=== PATIENT | male | born 1990 | race Caucasian/White ===

== ENCOUNTER 2016-03-09 19:56 | Emergency (ER) | payer SELFPAY ==
[~2016-03-09 19:56] MED LIST: ALBU8.5H3; BACTDS PO; CEPH-443 PO; HYDR-906 PO; IBUP-1542 PO
== END 2016-03-09 22:00 | disposition left against medical advice (07) ==
LOC: E/R 19:56
DX: Z53.21 Procedure and treatment not carried out due to patient leaving prior to being seen by health care provider (principal)

== ENCOUNTER 2016-07-10 20:35 | Inpatient (IN) | payer SELFPAY ==
[~2016-07-10] VITALS: Ht 180.3 cm; Wt 92.0 kg
[2016-07-10 21:29] VITALS: Ht 180.3 cm; Wt 92.0 kg
[2016-07-11] VITALS (25 sets, daily range): BP systolic 104–130; BP diastolic 50–98; PULSE 104–125; RESP 16–23; TEMP 100
[2016-07-11] MEDS ORDERED: SODIUM CHLORIDE 0.9% 1L BAG IV* STA (00:03)
[2016-07-11] MEDS ORDERED: ONDANSETRON 4 MG INJ IV STA (00:03)
[2016-07-11] MEDS ORDERED: morphine 4 MG/ML VIAL IV STA (00:03)
[2016-07-11 00:40] LABS: ADD SCAN DIFF NO
--- NOTE | 2016-07-11 00:42 | RADRPT ---
PROCEDURE: CT Abdomen and Pelvis without contrast. CLINICAL INDICATION: Pain. TECHNIQUE: CT scan of the abdomen and pelvis was performed on a multidetector slice CT scanner. No intravenous contrast material was utilized. Sagittal and coronal reformatted images were obtained fr om the axial source images. Images were reviewed on a high-resolution PACS workstation. Exam CTDlvol = mGy and DLP = Gy-cm. One of the following 3 dose reduction techniques were used: Automated expo sure control; adjustment of the mA and/or kV according to patient size; or use of iterative reconstr uction technique. COMPARISON: None. FINDINGS: There is no obstruction or ileus. Appendix is enlarged and 12 mm diameter. There is a 7.7 mm append icolith at the proximal appendix. There is surrounding fluid and infiltration with sub centimeter l ymph nodes, compatible with acute appendicitis. There is a small amount of extraluminal gas consist ent with perforation. Minimal free fluid extending to the pelvis. The liver is overall normal in size. No intrahepatic lesions are identified. The gallbladder is norm al in appearance. There is no definite biliary ductal dilation. Pancreas is normal in appearance. Th e spleen is unremarkable.. There are no adrenal masses. The aorta is normal caliber. Kidneys are normal in appearance without hydronephrosis, mass or calculus. There is no perinephric c ollection. Ureters are of normal caliber and without evidence for an obstructing calculus. The urin shu bladder is normal in appearance.. Limited evaluation of the lung bases is unremarkable. The bones are unremarkable. IMPRESSION: Enlarged indistinct appendix with surrounding infiltration fluid consistent with acute appendicitis. Appendicolith at the proximal aspect of the appendix. Small amount of extraluminal gas compatible perforation. Findings reported to Dr. RILEY on 07/11/2016 12:39:09 AM. RPTAT: HMVK .Walter West MD, Date Time Electronically viewed and signed by .Walter West MD, MD on 07/11/2016 00:42 .K/
--- NOTE | 2016-07-11 00:49 | RADRPT ---
PROCEDURE: XR Chest. CLINICAL INDICATION: Sepsis. TECHNIQUE: Single frontal chest x-ray. COMPARISON: None. FINDINGS: The cardiomediastinal silhouette is unremarkable. There is no congestive heart failure.. No focal i nfiltrate is seen. There is no pleural effusion. There is no pneumothorax. The osseous structures are unremarkable. IMPRESSION: 1. No active disease. RPTAT: HMVK .Walter West MD, Date Time Electronically viewed and signed by .Walter West MD, MD on 07/11/2016 00:48 .K/
[2016-07-11] MEDS ORDERED: LANS15CA PO (00:56)
[2016-07-11 00:58] LABS: INR 0.96; PROTIME 12.8 Sec (12.2-14.2)
[2016-07-11 00:59] LABS: PARTIAL THROMBOPLASTIN TIME 28.8 Sec (25.0-35.0)
[2016-07-11] MEDS ORDERED: VANCOMYCIN 1 GM (PMX) 250 ML IVPB ONE (01:00)
[2016-07-11] MEDS ORDERED: PIPER-TAZO 3.375 GM IV (PMX) 100 ML IVPB ONE (01:00)
[2016-07-11 01:01] LABS: ALANINE AMINOTRANSFERASE 48 IU/L (13-69); ALBUMIN 5.2 g/dl (3.3-4.9); ALBUMIN/GLOBULIN RATIO 1.48; ALKALINE PHOSPHATASE 90 IU/L (42-121); ANION GAP 18 (8-16); ASPARTATE AMINO TRANSFERASE 24 IU/L (15-46); BLOOD UREA NITROGEN 8 mg/dl (7-20); CALCIUM 9.7 mg/dl (8.4-10.2); CARBON DIOXIDE 23 mmol/L (21-31); CHLORIDE 99 mmol/L (97-110); CREATININE 0.89 mg/dl (0.61-1.24); GLUCOSE 130 mg/dl (70-220); POTASSIUM 3.6 mmol/L (3.5-5.1); SODIUM 136 mmol/L (135-144); TOTAL PROTEIN 8.7 g/dl (6.1-8.1)
[2016-07-11] MEDS ORDERED: SOD CHLORIDE 0.9% 1,000 ML IV SCH ×2 (01:10→01:58)
[2016-07-11 01:12] LABS: ADD UMIC YES; URINE BILIRUBIN (Dip) NEGATIVE (NEGATIVE); URINE BLOOD (Dip) 1+ (NEGATIVE); URINE COLOR LT. YELLOW (YELLOW); URINE GLUCOSE (Dip) NEGATIVE (NEGATIVE); URINE KETONES (Dip) NEGATIVE (NEGATIVE); URINE LEUKOCYTE ESTERASE (Dip) NEGATIVE (NEGATIVE); URINE NITRITE (Dip) NEGATIVE (NEGATIVE); URINE TOTAL PROTEIN (Dip) NEGATIVE (NEGATIVE); URINE UROBILINOGEN (Dip) 0.2 E.U./dL (0.1-1.0)
[2016-07-11 01:13] LABS: TROPONIN-I < 0.012 ng/ml (0.00-0.12)
[2016-07-11 01:14] LABS: BASOPHILS % 0.1 % (0.0-2.0); EOSINOPHILS % 0.1 % (0.0-7.0); HEMATOCRIT 38.5 % (42.0-52.0); HEMOGLOBIN 12.9 g/dl (14.0-18.0); LYMPHOCYTES # 1.5 10^3/ul (0.8-2.9); LYMPHOCYTES % 7.5 % (15.0-51.0); MEAN CORPUSCULAR HEMOGLOBIN 26.5 pg (29.0-33.0); MEAN CORPUSCULAR HGB CONC 33.5 g/dl (32.0-37.0); MEAN CORPUSCULAR VOLUME 79.2 fl (82.0-101.0); MEAN PLATELET VOLUME 9.5 fl (7.4-10.4); MONOCYTE # 1.4 10^3/ul (0.3-0.9); MONOCYTES % 7.5 % (0.0-11.0); NEUTROPHIL # 16.1 10^3/ul (1.6-7.5); NEUTROPHILS % 83.8 % (39.0-77.0); PLATELET COUNT 281 10^3/UL (140-415); RED BLOOD COUNT 4.86 10^6/ul (4.70-6.10); RED CELL DISTRIBUTION WIDTH 13.8 % (11.5-14.5); WHITE BLOOD COUNT 19.3 10^3/ul (4.8-10.8)
--- NOTE | 2016-07-11 01:25 | ERA ---
ER Documentation Chief Complaint Date/Time DATE: 07/11/16 TIME: 01:21 Chief Complaint ABDOMINAL PAIN HX OF ULCERS, FEVER, BODY ACHES, CHILLS, NAUSEA HPI This 25-year-old male presents to the emergency room for evaluation of abdominal pain and fever and body aches. The patient states that his pain is been present for 2 days duration however it is gotten worse over the past day. The patient localizes pain to the lower portion of the abdomen describes as a sharp pain with no radiation associated with mild nausea no vomiting or diarrhea. This patient was brought to the emergency room for further evaluation. He does state he has a previous history of ulcers however this does not feel similar to his ulcers ROS All systems reviewed and are negative except as per history of present illness. Medications Home Meds Reported Medications Lansoprazole* (Prevacid* 24HR) 15 Mg Capsule.dr, 15 MG PO DAILY, CAP 07/11/16 Discontinued Reported Medications Albuterol Sulfate* (Proair HFA*) 8.5 Gm Hfa.aer.ad 03/16/11 Discontinued Scripts Hydrocodone/Acetaminophen ([place] 5-325 Tablet) 1 Each Tablet, 1 TAB PO Q6H Y for PAIN, #20 TAB Prov:CARRILLO RESTRE[employer]. ASSOCIATE PRINCIPAL 11/28/15 Ibuprofen* (Motrin*) 600 Mg Tab, 600 MG PO Q6H Y for PAIN AND OR ELEVATED TEMP, #30 TAB Prov:CARRILLO RESTREPO. ASSOCIATE PRINCIPAL 11/28/15 Cephalexin* (Keflex*) 500 Mg Capsule, 500 MG PO QID for 10 Days, CAP Prov:CARRILLO RESTREPO. ASSOCIATE PRINCIPAL 11/28/15 Sulfamethoxazole-Trimethoprim* (Bactrim* DS) 800-160 Mg Tab, 1 TAB PO BID for 10 Days, TAB Prov:CARRILLO RESTREPO. ASSOCIATE PRINCIPAL 11/28/15 Allergies Allergies: Coded Allergies: No Known Allergy (Unverified , 03/16/11) PMhx/Soc History of Surgery: No Hx Alcohol Use: No Hx Substance Use: No Hx Tobacco Use: No Physical Exam Vitals Vital Signs Date Time Temp Pulse Resp B/P Pulse Ox O2 Delivery O2 Flow Rate FiO2 07/10/16 21:29 102.8 129 20 124/68 100 Physical Exam INITIAL VITAL SIGNS: Reviewed by me GENERAL: The patient is well developed and appropriate for usual state of health in no apparent distress HEENT: Pupils equal, round, and reactive to light. EOMI. There is no scleral icterus. NECK: C-spine is soft and supple, there is no meningismus. There is no cervical lymphadenopathy. LUNGS: Clear to auscultation bilaterally. There are no rales, wheezes or rhonchi. HEART: Tachycardic, no murmurs, clicks, rubs or gallops. ABDOMEN: Positive McBurney point tenderness with mild guarding in the right lower quadrant, positive Rovsing sign EXTREMITIES: There is no peripheral cyanosis or edema. No focal swelling or erythema. NEUROLOGICAL: The patient moves all four extremities with 5/5 strength. Cranial nerves II - XII are intact. Normal gait. Alert and oriented SKIN: There is no apparent rash or petechiae. HEME/LYMPHATIC: There is no evidence of excessive bruising or lymphedema. PSYCHIATRIC: The patient does not appear anxious or depressed. Result Diagram: 07/11/16 0055 07/11/16 0025 Results 24 hrs Laboratory Tests Test 07/11/16 00:25 07/11/16 00:55 Prothrombin Time 12.8Sec Prothrombin Time Ratio 1.0 INR International Normalized Ratio 0.96 Activated Partial Thromboplast Time 28.8Sec Sodium Level 136mmol/L Potassium Level 3.6mmol/L Chloride Level 99mmol/L Carbon Dioxide Level 23mmol/L Anion Gap 18 Blood Urea Nitrogen 8mg/dl Creatinine 0.89mg/dl Glucose Level 130mg/dl Calcium Level 9.7mg/dl Total Bilirubin 1.0mg/dl Direct Bilirubin 0.00mg/dl Indirect Bilirubin 1.0mg/dl Aspartate Amino Transf (AST/SGOT) 24IU/L Alanine Aminotransferase (ALT/SGPT) 48IU/L Alkaline Phosphatase 90IU/L Troponin I < 0.012ng/ml Total Protein 8.7g/dl Albumin 5.2g/dl Globulin 3.50g/dl Albumin/Globulin Ratio 1.48 White Blood Count 19.310^3/ul Red Blood Count 4.8610^6/ul Hemoglobin 12.9g/dl Hematocrit 38.5% Mean Corpuscular Volume 79.2fl Mean Corpuscular Hemoglobin 26.5pg Mean Corpuscular Hemoglobin Concent 33.5g/dl Red Cell Distribution Width 13.8% Platelet Count 34142^3/UL Mean Platelet Volume 9.5fl Neutrophils % 83.8% Lymphocytes % 7.5% Monocytes % 7.5% Eosinophils % 0.1% Basophils % 0.1% Nucleated Red Blood Cells % 0.0/100WBC Neutrophils # 16.110^3/ul Lymphocytes # 1.510^3/ul Monocytes # 1.410^3/ul Eosinophils # 0.010^3/ul Basophils # 0.010^3/ul Nucleated Red Blood Cells # 0.010^3/ul Urine Color LT. YELLOW Urine Clarity CLEAR Urine pH 7.5 Urine Specific [place] 1.010 Urine Ketones NEGATIVE Urine Nitrite NEGATIVE Urine Bilirubin NEGATIVE Urine Urobilinogen 0.2 E.U./dL Urine Leukocyte Esterase NEGATIVE Urine Microscopic RBC Pending Urine Microscopic WBC Pending Urine Hemoglobin 1+ Urine Glucose NEGATIVE% Urine Total Protein NEGATIVE Current Medications Medications (Trade) Dose Ordered Sig/Theo Route PRN Reason Start Time Stop Time Status Last Admin Dose Admin Sodium Chloride (NS) 2,850 ml BOLUS OVER 2 HOURS STAT IV* 07/11/16 00:03 07/11/16 00:06 DC 07/11/16 00:46 Ondansetron HCl (Zofran Inj) 4 mg ONCE STAT IV 07/11/16 00:03 07/11/16 00:06 DC 07/11/16 00:45 Morphine Sulfate 4 mg 4 mg ONCE STAT IV 07/11/16 00:03 07/11/16 00:06 DC 07/11/16 00:45 Piperacillin Sod/ Tazobactam Sod 100 ml @ 200 mls/hr ONCE ONCE IVPB 07/11/16 01:00 07/11/16 01:29 07/11/16 01:10 Vancomycin HCl 250 ml @ 125 mls/hr ONCE ONCE IVPB 07/11/16 01:00 07/11/16 02:59 Sodium Chloride (NS) 1,000 ml @ 80 mls/hr [id number] IV 07/11/16 01:10 07/11/16 13:39 Ondansetron HCl (Zofran Inj) 4 mg BRIDGE ORDER PRN IV NAUSEA AND/OR VOMITING 07/11/16 01:30 07/12/16 01:29 Acetaminophen (Tylenol Tab) 650 mg ER BRIDGE PRN PO MILD PAIN/FEVER 07/11/16 01:30 07/12/16 01:29 Procedures/MDM CT abdomen pelvis without IV contrast: Enlarged indistinct appendix with surrounding infiltration fluid consistent with acute appendicitis. Appendicolith at the proximal aspect of the appendix. Small amount of extraluminal gas compatible perforation. Chest X-ray 1V Interpreted by me: Soft Tissue: No acute abnormalities Bones: No acute abnormalities Mediastinum/Cardiac Silhouette/Lungs: [No acute abnormalities] EKG: Rate/Rhythm: Sinus tachycardia QRS, ST, T-waves: [No changes consistent w/ acute ischemia] Impression: [No evidence of ischemia or arrhythmia] This 25-year-old male presents to the emergency room for evaluation of abdominal pain. When I evaluated this patient he is febrile tachycardic and did have tenderness to palpation with minor guarding in the right lower quadrant. This patient did have septic workup and I did obtain a CT of the abdomen and pelvis which confirm my suspicion of appendicitis. This patient also has a microperforation of his appendicitis. He has a leukocytosis. He was given 30 cc/kg of IV normal saline. He was started on vancomycin and Zosyn after blood cultures were obtained. I have spoken with our general surgeon installation superintendent, Dr. Medrano who agrees to evaluate this patient. This patient is hemodynamically stable at this time with no need for vasopressors and will be placed on the [facility] floor under the care of Dr. ceron Critical Care: Excluding all billable procedures Time: 36 minutes Treatments/Evaluations: Close monitoring and treatment of unstable vital signs, cardiorespiratory, and neurologic status, while maintaining tight balance of fluid, respiratory, and cardiac interventions. Departure Diagnosis: Primary Impression: Sepsis Additional Impression: Perforated appendicitis Condition: BRENNA Rivera DO Jul 11, 2016 01:25
[2016-07-11] MEDS ORDERED: ACETAMINOPHEN 325 MG TAB PO PRN (01:30)
[2016-07-11] MEDS ORDERED: ONDANSETRON 4 MG INJ IV PRN ×4 (01:30→07:30)
[2016-07-11 01:35] LABS: SQUAMOUS EPITHELIAL CELL,UR OCCASIONAL
[2016-07-11] MEDS ORDERED: KETOROLAC 30 MG INJ IV ONE (01:59)
[2016-07-11] MEDS ORDERED: NACL 0.9% 3 ML SYG IV SCH (02:00)
--- NOTE | 2016-07-11 02:09 | HP ---
Date/Time of Note Date/Time of Note DATE: 07/11/16 TIME: 01:58 Assessment/Plan VTE Prophylaxis VTE Prophylaxis Intervention: SCD's Assessment/Plan Chief Complaint/Hosp Course This is a 25-year-old male being admitted to the telemetry floor for: #1 sepsis: White blood cell count of 19 with a heart rate of 130 and a temperature of 102.8 abdominal source of infection of appendicitis. Patient started right now and IV fluids, Zosyn IV. General surgery was contacted patient will going to the OR this a.m. Keep patient n.p.o. #2 acute appendicitis: Physical exam and CT findings are consistent with acute appendicitis. There also appears to be a small amount of luminal gas is consistent with perforation. Patient will be given IV pain meds for pain control and antibiotics as per #1. IV fluid hydration. General surgery was contacted by the ER physician patient will be going to the OR today. Keep patient n.p.o. #3 DVT and GI prophylaxis: SCDs, Protonix Problems: HPI/ROS Admit Date/Time Admit Date/Time 07/11/16 Hx of Present Illness Chief complaint: Abdominal pain This 25-year-old male presents to the emergency room for evaluation of abdominal pain and fever and body aches. The patient states that his pain is been present for 2 days duration however it is gotten worse over the past day. The patient localizes pain to the lower portion of the abdomen describes as a sharp pain with no radiation associated with mild nausea no vomiting or diarrhea. This patient was brought to the emergency room for further evaluation. He does state he has a previous history of ulcers however this does not feel similar to his ulcers Allergies: NKDA Medications: Prevacid ROS Const: As per HPI Eyes : No pain discharge or redness or change in visual acuity ENT: No pain, sore throat, congestion, congestion, dysphagia or discharge Respiratory: No shortness of breath, cough, sputum, wheezing, or pleuritic pain Cardiovascular: No chest pain, palpitation, PND, or edema GI : As per HPI Genitourinary: No dysuria, hematuria, flank pain , discharge or CVA tenderness Musculoskeletal: No joint pain, back pain, neck pain, restricted range of motion in neck or joints Skin: No rash, bruising or hives Neuro: No headache, dizziness, syncope, seizure, focal weakness Endocrine: No polyuria, polydipsia, temperature intolerance Psych: No hallucination, depression, anxiety or suicidal ideation PMH/Family/Social Past Medical History Reflux Past Surgical History Past Surgical Hx: no surgical history Family History Significant Family History: no pertinent family hx Social History Alcohol Use: none Smoking Status: Never smoker Drug Use: none Exam/Review of Systems Vital Signs Vitals Vital Signs Date Time Temp Pulse Resp B/P Pulse Ox O2 Delivery O2 Flow Rate FiO2 07/10/16 21:29 102.8 129 20 124/68 100 Exam Exam General: Patient is well-developed well-nourished and in some mild distress. HEENT: Atraumatic, normocephalic. The pupils are equal, round and reactive. Extraocular motor are intact Neck: Supple with full range of motion. No rigidity or meningismus Chest: Nontender Lungs: Clear to auscultation bilaterally no crackles rales or wheezing Heart: Normal S1-S2, Regular rhythm and rate. No murmur, S3, or S4 Abdomen: Soft, tender to palpation at the right lower quadrant, positive rebound tenderness palpated on the left side of the abdomen Extremities: Normal to inspection, no edema no cyanosis Neurologic: Normal mental status, speech normal, cranial nerves II through XII are intact, motor and sensory are intact, no focal weakness Additional Comments CT abdomen pelvis without IV contrast: Enlarged indistinct appendix with surrounding infiltration fluid consistent with acute appendicitis. Appendicolith at the proximal aspect of the appendix. Small amount of extraluminal gas compatible perforation. PROCEDURE: XR Chest. CLINICAL INDICATION: Sepsis. TECHNIQUE: Single frontal chest x-ray. COMPARISON: None. FINDINGS: The cardiomediastinal silhouette is unremarkable. There is no congestive heart failure.. No focal infiltrate is seen. There is no pleural effusion. There is no pneumothorax. The osseous structures are unremarkable. IMPRESSION: 1. No active disease. EKG: Rate/Rhythm: Sinus tachycardia QRS, ST, T-waves: [No changes consistent w/ acute ischemia] As per ED physician documentation Labs Result Diagram: 07/11/16 0055 07/11/16 0025 Medications Medications Current Medications Vancomycin HCl 250 ml @ 125 mls/hr ONCE ONCE IVPB ; Start 07/11/16 at 01:00; Stop 07/11/16 at 02:59 Sodium Chloride (NS) 1,000 ml @ 80 mls/hr [id number] IV ; Start 07/11/16 at 01:10; Stop 07/11/16 at 13:39 Morphine Sulfate (morphine) 4 mg Q3H PRN IV PAIN; Start 07/11/16 at 02:00; Status ESTELLE MENDEZ Jul 11, 2016 02:08
[2016-07-11] MEDS ORDERED: BUPIVACAINE 0.25%/EPI (SDV) 30 ML INJ ONE (05:50)
[2016-07-11] MEDS ORDERED: LIDOCAINE 1% (STERILE-PAK) 30 ML INJ ONE (06:30)
[2016-07-11] MEDS ORDERED: LIDOCAINE 1% (MPF) 30 ML INJ INJ ONE (06:46)
--- NOTE | 2016-07-11 06:51 | CONS ---
DATE OF ADMISSION: 07/10/2016 DATE OF CONSULTATION: 07/11/2016 HISTORY OF PRESENT ILLNESS: Mr. Tran is a 25-year-old male who presented to the ER with acute ab dominal pain beginning last night. He said his pain was generalized and over the course of the day it localized to his right lower quadrant. He felt chills and possibly had a temperature. He also h ad nausea, but no emesis. He was concerned that he had a prior history of ulcers and thought that concepcion saleem possibly had an ulcer in the past. He presented to the ER and his workup was consistent with an a cute appendicitis. He did have a temperature to 102.8 in the ER. PAST MEDICAL HISTORY: Noncontributory. PAST SURGICAL HISTORY: None. MEDICATIONS: None. ALLERGIES: NO KNOWN DRUG ALLERGIES. SOCIAL HISTORY: Denies drinking, drug use or smoking. PHYSICAL EXAMINATION: GENERAL: He is a well-developed, well-nourished male, in no apparent distress. VITAL SIGNS: T-max 102.8, currently 100, heart rate 100, BP 114/70. CHEST: Clear to auscultation bilaterally. HEART: Regular rhythm. ABDOMEN: Soft, nondistended, but significant right lower quadrant tenderness. LABORATORY: Reveal a white count of 19, hematocrit of 39 and platelets of 281. Sodium 136, potassi um 3.6, chloride 99, CO2 23, BUN and creatinine 8 and 0.9 and glucose of 130. His CT is consistent with an acute appendicitis, with a small amount of extraluminal gas, compatible with perforation. ASSESSMENT AND PLAN: Mr. Tran is a 25-year-old male with an acute appendicitis, possibly perfora zulay. I discussed laparoscopic, possible open, appendectomy with the patient. All benefits, risks a nd alternatives were discussed in detail. All questions were answered and the patient elected to pr oceed. Dictated By: BING MEADOWS/GOVIND Conf#: [id number] DID#: [id number]
[2016-07-11] MEDS ORDERED: HYDROmorphONE 1 MG/ML SYG IV PRN (07:00)
[2016-07-11] MEDS ORDERED: LIDOCAINE 2% (SDV) 5 ML INJ ONE (07:11)
[2016-07-11] MEDS ORDERED: PROPOFOL 20 ML ONE (07:11)
[2016-07-11] MEDS ORDERED: NEOSTIGMINE 3 MG/3 ML SYRINGE ONE (07:11)
[2016-07-11] MEDS ORDERED: SUCCINYLCHOLINE CHLORIDE 100 MG/5 ML SYG IV ONE (07:11)
[2016-07-11] MEDS ORDERED: GLYCOPYRROLATE 0.4 MG INJ ONE (07:11)
[2016-07-11] MEDS ORDERED: ROCURONIUM 50 MG INJ ONE (07:11)
[2016-07-11] MEDS ORDERED: MEPERIDINE 100 MG INJ ONE (07:11)
[2016-07-11] MEDS ORDERED: PIPER-TAZO 3.375 GM IV (PMX) 100 ML ONE (07:14)
[2016-07-11] MEDS ORDERED: HYDROmorphONE (0.2 MG/ML) 10ML SYG IV PRN ×2 (07:30)
[2016-07-11] MEDS ORDERED: morphine (1 MG/ML) 10ML SYRINGE IV PRN ×2 (07:30)
[2016-07-11] MEDS ORDERED: LABETALOL HCL 20MG INJ IV PRN (07:30)
[2016-07-11] MEDS ORDERED: hydrALAzine 20 MG INJ IV PRN (07:30)
[2016-07-11] MEDS ORDERED: EPHEDrine SULFATE 50 MG/5 ML SYG IV PRN (07:30)
[2016-07-11] MEDS ORDERED: MIDAZOLAM 1 MG/ML 2 ML INJ IV PRN (07:30)
[2016-07-11] MEDS ORDERED: MEPERIDINE 25 MG INJ IV PRN (07:30)
[2016-07-11] MEDS ORDERED: METOCLOPRAMIDE 10 MG INJ IV PRN (07:30)
[2016-07-11] MEDS ORDERED: DIPHENHYDRAMINE 50 MG INJ IV PRN (07:30)
[2016-07-11] MEDS ORDERED: FENTAnyl 50 MCG/ML VIAL IV PRN ×2 (07:30)
[2016-07-11] MEDS: PIPER-TAZO 3.375 GM IV (PMX) 100 ML IVPB SCH ×2 (12:25→18:04)
[2016-07-11] MEDS: ACETAMINOPHEN 325 MG TAB PO PRN (12:25)
[2016-07-11] MEDS: KETOROLAC 30 MG INJ IV SCH ×3 (12:36→19:20)
[2016-07-11] MEDS: morphine 4 MG/ML VIAL IV PRN ×2 (14:45→22:09)
[2016-07-11] MEDS: D5-NS + KCL 20 MEQ 1,000 ML IV SCH ×2 (14:45→22:25)
[2016-07-11] MEDS: PANTOPRAZOLE 40 MG INJ IV SCH (14:45)
[2016-07-11] MEDS: ENOXAPARIN 40 MG/0.4 ML SYG SC SCH (18:08)
[2016-07-12 01:16] VITALS: BP 120/75; PULSE 92; RESP 19
[2016-07-12] MEDS: KETOROLAC 30 MG INJ IV SCH ×3 (01:20→12:26)
[2016-07-12] MEDS: PIPER-TAZO 3.375 GM IV (PMX) 100 ML IVPB SCH ×4 (01:20→18:11)
[2016-07-12] MEDS: D5-NS + KCL 20 MEQ 1,000 ML IV SCH ×3 (02:33→22:24)
[2016-07-12 05:19] LABS: ADD SCAN DIFF NO
[2016-07-12 05:23] LABS: BASOPHILS % 0.2 % (0.0-2.0); EOSINOPHILS % 0.1 % (0.0-7.0); HEMATOCRIT 34.7 % (42.0-52.0); HEMOGLOBIN 11.2 g/dl (14.0-18.0); LYMPHOCYTES # 1.7 10^3/ul (0.8-2.9); LYMPHOCYTES % 13.4 % (15.0-51.0); MEAN CORPUSCULAR HEMOGLOBIN 26.1 pg (29.0-33.0); MEAN CORPUSCULAR HGB CONC 32.3 g/dl (32.0-37.0); MEAN CORPUSCULAR VOLUME 80.9 fl (82.0-101.0); MEAN PLATELET VOLUME 9.6 fl (7.4-10.4); MONOCYTE # 0.8 10^3/ul (0.3-0.9); MONOCYTES % 6.5 % (0.0-11.0); NEUTROPHIL # 10.1 10^3/ul (1.6-7.5); NEUTROPHILS % 79.3 % (39.0-77.0); PLATELET COUNT 214 10^3/UL (140-415); RED BLOOD COUNT 4.29 10^6/ul (4.70-6.10); RED CELL DISTRIBUTION WIDTH 14.4 % (11.5-14.5); WHITE BLOOD COUNT 12.7 10^3/ul (4.8-10.8)
[2016-07-12 05:51] LABS: ALBUMIN 3.7 g/dl (3.3-4.9); ALBUMIN/GLOBULIN RATIO 1.42; BILIRUBIN,INDIRECT 0.8 mg/dl (0-1.1); BILIRUBIN,TOTAL 0.8 mg/dl (0.2-1.3); CALCIUM 8.3 mg/dl (8.4-10.2); CREATININE 0.83 mg/dl (0.61-1.24); POTASSIUM 3.6 mmol/L (3.5-5.1); TOTAL PROTEIN 6.3 g/dl (6.1-8.1)
[2016-07-12] MEDS: PANTOPRAZOLE 40 MG INJ IV SCH (06:24)
[2016-07-12] MEDS: ENOXAPARIN 40 MG/0.4 ML SYG SC SCH (07:03)
--- NOTE | 2016-07-12 08:10 | PN ---
DATE: 07/12/2016 SUBJECTIVE: Mr. Tran is postop day 1 from laparoscopic appendectomy for perforated appendicitis. The patient is feeling better. He is tolerating clears. OBJECTIVE: VITAL SIGNS: His T-max was 102 yesterday, and he did have a temperature of 101.5 last night. His v ital signs are stable. His urine output is over 2 liters. ABDOMEN: Soft, nondistended. His wounds are clean, dry, and intact. LABORATORY DATA: Today reveal white count of 13, down from 19, hematocrit of 35, and platelets of 2 14. Sodium 142, potassium 3.6, chloride 110, CO2 24, BUN and creatinine 5 and 0.8, and glucose 114. ASSESSMENT AND PLAN: Mr. Tran is a 25-year-old male status post laparoscopic appendectomy for pe rforated appendicitis. 1. Continue IV antibiotics. 2. Possibly discharge tomorrow if afebrile and white count normalizes. Dictated By: BING MEADOWS/NTS Conf#: [id number] DID#: [id number]
[2016-07-12 08:15] VITALS: BP 127/68; RESP 19
[2016-07-12] MEDS ORDERED: POTASSIUM CHLORIDE (SR) 20 MEQ TAB PO STA (08:15)
--- NOTE | 2016-07-12 08:21 | PN ---
Date/Time of Note Date/Time of Note DATE: 07/12/16 TIME: 08:19 Assessment/Plan VTE Prophylaxis VTE Prophylaxis Intervention: other Lines/Catheters IV [facility] Type [facility] Peripheral IV Assessment/Plan Problems: (1) Perforated appendicitis Status: Acute Comment: Status post appendectomy by Dr. Medrano yesterday. Progressing with postop care and antibiotics. Due to the advanced state of the time of his presentation he will need another day in the hospital. (2) Sepsis Status: Acute Comment: This is improving nicely but he is continue on antibiotics. His white count is come down but not normalize he still had some fevers. Subjective 24 Hr Interval Summary Free Text/Dictation Young gentleman lying in bed. He reports he feels much better he did 2 days ago and is inquiring whether he can walk around. He still does note some abdominal pain Constitutional: improved (Please note he did have fever yesterday and this morning) Respiratory: no complaints Cardiovascular: no complaints Gastrointestinal: flatus (Flatus is positive.), pain Genitourinary: no complaints Exam/Review of Systems Vital Signs Vitals Vital Signs Date Time Temp Pulse Resp B/P Pulse Ox O2 Delivery O2 Flow Rate FiO2 07/12/16 08:15 98.0 91 19 127/68 98 07/12/16 01:16 Room Air 07/11/16 08:11 10.0 Intake and Output 07/11/16 07/11/16 07/12/16 15:00 23:00 07:00 Intake Total 1100 ml 1240 ml 2100 ml Output Total 610 ml 600 ml 900 ml Balance 490 ml 640 ml 1200 ml Exam Charming young gentleman lying in bed Constitutional: alert, oriented Neck: non-tender, supple Respiratory: clear to auscultation, normal air movement Cardiovascular: nl pulses, regular rate and rhythm Gastrointestinal: nl liver, spleen, soft, tender (Tender especially over the right lower quadrant without rebound) Results Result Diagram: 07/12/160 07/12/16 0440 Results 24 hrs Laboratory Tests Test 07/12/16 04:40 White Blood Count 12.7 #H Red Blood Count 4.29 L Hemoglobin 11.2 L Hematocrit 34.7 L Mean Corpuscular Volume 80.9 L Mean Corpuscular Hemoglobin 26.1 L Mean Corpuscular Hemoglobin Concent 32.3 Red Cell Distribution Width 14.4 Platelet Count 214 # Mean Platelet Volume 9.6 Neutrophils % 79.3 H Lymphocytes % 13.4 L Monocytes % 6.5 Eosinophils % 0.1 Basophils % 0.2 Nucleated Red Blood Cells % 0.0 Neutrophils # 10.1 H Lymphocytes # 1.7 Monocytes # 0.8 Eosinophils # 0.0 Basophils # 0.0 Nucleated Red Blood Cells # 0.0 Sodium Level 142 Potassium Level 3.6 Chloride Level 110 # Carbon Dioxide Level 24 Anion Gap 12 Blood Urea Nitrogen 5 L Creatinine 0.83 Glucose Level 114 Calcium Level 8.3 L Total Bilirubin 0.8 Direct Bilirubin 0.00 Indirect Bilirubin 0.8 Aspartate Amino Transf (AST/SGOT) 16 Alanine Aminotransferase (ALT/SGPT) 40 Alkaline Phosphatase 61 Total Protein 6.3 # Albumin 3.7 # Globulin 2.60 Albumin/Globulin Ratio 1.42 Medications Medications Current Medications Morphine Sulfate (morphine) 4 mg Q3H PRN IV PAIN Last administered on 07/11/16 22:09; Admin Dose 4 MG; Start 07/11/16 at 02:00 Pantoprazole 40 mg 40 mg DAILY@06 IV Last administered on 07/12/16 06:24; Admin Dose 40 MG; Start 07/11/16 at 06:00 Piperacillin Sod/ Tazobactam Sod (Zosyn 3.375gm/ 100 ml (Pmx)) 100 ml @ 200 mls /hr Q6 IVPB Last administered on 07/12/16 06:24; Admin Dose 200 MLS/HR; Start 07/11/16 at 12:00 Ondansetron HCl (Zofran Inj) 4 mg Q6H PRN IV NAUSEA AND/OR VOMITING; Start 07/11 at 07:00 Acetaminophen (Tylenol Tab) 650 mg Q6H PRN PO PAIN LEVEL 1-3 OR FEVER Last administered on 07/11/16 12:25; Admin Dose 650 MG; Start 07/11/16 at 07:00 Ibuprofen (Motrin) 600 mg Q6H PRN PO PAIN LEVEL 1-3; Start 07/13/16 at 02:00 Ketorolac Tromethamine (Toradol) 15 mg Q6H IV Last administered on 07/12/16 06: 25; Admin Dose 15 MG; Start 07/11/16 at 07:00; Stop 07/13/16 at 01:01 Hydromorphone HCl (Dilaudid) 0.5 mg Q4H PRN IV PAIN LEVEL 8-10; Start 07/11/16 at 07:00 Acetaminophen/ Hydrocodone Bitart 1 tab 1 tab Q6H PRN PO PAIN LEVEL 4-7; Start 07/11/16 at 07:00 Potassium Chloride/Dextrose/ Sod Cl (D5-NS + KCl 20 Meq) 1,000 ml @ 100 mls/hr Q10H IV Last administered on 07/11/16 22:25; Admin Dose 100 MLS/HR; Start at 06:33 Enoxaparin Sodium (Lovenox) 40 mg DAILY@07 SC Last administered on 07/12/16 07: 03; Admin Dose 40 MG; Start 07/11/16 at 07:00 JENNY ARCHER MD Jul 12, 2016 08:21
[2016-07-12] MEDS: HYDROCODONE/APAP (5/325) TAB PO PRN (08:41)
[2016-07-12] MEDS: morphine 4 MG/ML VIAL IV PRN ×3 (10:26→22:24)
[2016-07-12] MEDS: ACETAMINOPHEN 325 MG TAB PO PRN ×2 (10:38→18:11)
[2016-07-12 10:44] VITALS: BP 128/70; PULSE 88; RESP 18
[2016-07-12] MEDS ORDERED: KETOROLAC 15 MG INJ IV SCH (12:30)
[2016-07-12] MEDS: KETOROLAC 15 MG INJ IV SCH ×2 (12:31→20:27)
[2016-07-12 19:15] VITALS: BP 127/70; RESP 20
[2016-07-13] MEDS: KETOROLAC 15 MG INJ IV SCH ×2 (00:24→06:45)
[2016-07-13] MEDS: PIPER-TAZO 3.375 GM IV (PMX) 100 ML IVPB SCH ×4 (00:25→17:23)
[2016-07-13] MEDS: morphine 4 MG/ML VIAL IV PRN (01:56)
[2016-07-13] MEDS ORDERED: IBUPROFEN 600 MG TAB PO PRN (02:00)
[2016-07-13 05:40] LABS: ADD SCAN DIFF NO
[2016-07-13 05:54] LABS: BASOPHILS % 0.1 % (0.0-2.0); EOSINOPHILS # 0.1 10^3/ul (0.0-0.5); EOSINOPHILS % 1.4 % (0.0-7.0); HEMATOCRIT 33.1 % (42.0-52.0); HEMOGLOBIN 10.6 g/dl (14.0-18.0); LYMPHOCYTES # 1.7 10^3/ul (0.8-2.9); LYMPHOCYTES % 18.9 % (15.0-51.0); MEAN CORPUSCULAR HEMOGLOBIN 25.9 pg (29.0-33.0); MEAN CORPUSCULAR VOLUME 80.9 fl (82.0-101.0); MONOCYTE # 0.8 10^3/ul (0.3-0.9); MONOCYTES % 8.8 % (0.0-11.0); NEUTROPHIL # 6.2 10^3/ul (1.6-7.5); NEUTROPHILS % 70.3 % (39.0-77.0); PLATELET COUNT 220 10^3/UL (140-415); RED BLOOD COUNT 4.09 10^6/ul (4.70-6.10); RED CELL DISTRIBUTION WIDTH 14.3 % (11.5-14.5); WHITE BLOOD COUNT 8.8 10^3/ul (4.8-10.8)
[2016-07-13] MEDS: PANTOPRAZOLE 40 MG INJ IV SCH (06:03)
[2016-07-13 06:19] LABS: CALCIUM 8.5 mg/dl (8.4-10.2); CREATININE 0.77 mg/dl (0.61-1.24); POTASSIUM 4.1 mmol/L (3.5-5.1)
[2016-07-13] MEDS: ENOXAPARIN 40 MG/0.4 ML SYG SC SCH (06:45)
[2016-07-13] MEDS: D5-NS + KCL 20 MEQ 1,000 ML IV SCH ×2 (08:11→17:38)
--- NOTE | 2016-07-13 09:08 | OPR ---
DATE OF OPERATION: 07/11/2016 PREOPERATIVE DIAGNOSIS: Acute appendicitis. POSTOPERATIVE DIAGNOSIS: Acute necrotic appendicitis. PROCEDURE: Laparoscopic appendectomy. SURGEON: Bing Medrano MD AUTOMOTIVE WORKER: None. ANESTHESIA: Endotracheal. ANESTHESIOLOGIST: Dr. Crane ESTIMATED BLOOD LOSS: Minimal. COMPLICATIONS: None. SPECIMENS: Appendix. FINDINGS: Acute appendicitis. INDICATIONS: Mr. Tran is a 25-year-old male who developed acute onset of abdominal pain, localiz ing to his right lower quadrant. He presented to the ER where his workup was consistent with an acute appendicitis. I was called for consultation. I discussed proceeding with a laparoscopic, possible open, appendectomy. All benefits, risks and alternatives were discussed in detail with the patient. All questions were answered. The patient elected to proceed. DESCRIPTION OF PROCEDURE: Patient was brought to the operating room and placed supine on the table. After preoperative antibiotics and SCDs were applied the patient was intubated and the abdomen was cleaned, prepped and draped in the usual sterile fashion. All incisions were infiltrated with 1% l idocaine. A 5-mm incision was made in the umbilicus. Using a 5-mm laparoscope CO2. The fol lowing trocars were then placed under direct vision. A right lower quadrant 5-mm and a left lower q uadrant 12-mm. The omentum was overlying the cecum. I the omentum off the cecum bluntly and identified an indurated injected appendix. The middle of the appendix was necrotic. I dissected th e peritoneal attachments of the appendix off laterally in order to identify the base of the cecum. I made a rent in the mesentery at the base of the appendix. I was able to divide the cecum at the b ase of the appendix with a 35-mm Endo linear cutter white load. The appendiceal mesentery was then divided with a 35-mm Endo linear white load. The appendix was placed in an EndoCatch bag and remove d through the 12-mm trocar site. I then irrigated out the right lower quadrant and pelvis effluent was clear. I visualized my staple lines. They were hemostatic. At this point, I placed the append ix in an EndoCatch bag and removed it from the 12-mm trocar site. I closed the fascia of the 12mm t rocar site with 0 Vicryl using an Endo Close device. At this point, I desufflated the abdomen and r emoved all trocars. The skin incisions were all closed with 4-0 Monocryl and also Steri-Strips. Th e patient tolerated the procedure well, was extubated and removed to the recovery room in stable con dition. Dictated By: BING MEADOWS/GOVIND Conf#: [id number] DID#: [id number]
[2016-07-13 09:12] VITALS: BP 119/67; RESP 20
[2016-07-13] MEDS: ACETAMINOPHEN 325 MG TAB PO PRN (11:12)
--- NOTE | 2016-07-13 17:46 | PDOCDIS ---
Discharge Instructions DIAGNOSIS Discharge Diagnosis: appendicitis CONDITION Patient Condition: Fair HOME CARE INSTRUCTIONS: Diet Instructions: RegularSpecial Diet: SOFT DIET; may advance to regular ACTIVITY: Activity Restrictions: Slowly Increase Activity Rest between Activity Avoid heavy lifting Bathing Restrictions: Shower FOLLOW UP/APPOINTMENTS Appointments appt Dr Alize Medrano -1wk PCP 2wMAURY Varner MD Jul 13, 2016 17:46
[2016-07-13] MEDS ORDERED: ACET325T40 PO (17:47)
--- NOTE | 2016-07-13 18:23 | PN ---
Date/Time of Note Date/Time of Note DATE: 07/13/16 TIME: 18:21 Assessment/Plan VTE Prophylaxis VTE Prophylaxis Intervention: LMWH Lines/Catheters IV Catheter Type (from Nrs): Peripheral IV Assessment/Plan Chief Complaint/Hosp Course Subjective: Feels better passing gas and tolerating diet. He does have some sharp pain around his umbilicus while lying down. No previous similar discomfort in past. Objective: Vital signs stable Physical examination No pallor icterus Regular Clear Bs+ dimin; mild tender nd; no R/R/G No edema A/P 1. Acute appendicitis, sp lap love. Stable, treat pain/ advance diet. Anticipate discharge tomorrow Problems: Exam/Review of Systems Vital Signs Vitals Vital Signs Date Time Temp Pulse Resp B/P Pulse Ox O2 Delivery O2 Flow Rate FiO2 07/13/16 09:12 98.4 94 20 119/67 95 07/12/16 10:44 Room Air 07/11/16 08:11 10.0 Intake and Output 07/12/16 07/12/16 07/13/16 15:00 23:00 07:00 Intake Total 100 ml 1120 ml 1220 ml Output Total 1650 ml 1200 ml Balance 100 ml -530 ml 20 ml Results Result Diagram: 07/13/16 0424 07/13/16 0424 Results 24 hrs Laboratory Tests Test 07/13/16 04:24 White Blood Count 8.8 # Red Blood Count 4.09 L Hemoglobin 10.6 L Hematocrit 33.1 L Mean Corpuscular Volume 80.9 L Mean Corpuscular Hemoglobin 25.9 L Mean Corpuscular Hemoglobin Concent 32.0 Red Cell Distribution Width 14.3 Platelet Count 220 Mean Platelet Volume 10.0 Neutrophils % 70.3 Lymphocytes % 18.9 Monocytes % 8.8 Eosinophils % 1.4 Basophils % 0.1 Nucleated Red Blood Cells % 0.0 Neutrophils # 6.2 Lymphocytes # 1.7 Monocytes # 0.8 Eosinophils # 0.1 Basophils # 0.0 Nucleated Red Blood Cells # 0.0 Sodium Level 143 Potassium Level 4.1 Chloride Level 110 Carbon Dioxide Level 25 Anion Gap 12 Blood Urea Nitrogen 3 L Creatinine 0.77 Glucose Level 100 Calcium Level 8.5 Medications Medications Current Medications Morphine Sulfate (morphine) 4 mg Q3H PRN IV PAIN Last administered on 07/13/16t 01:56; Admin Dose 4 MG; Start 07/11/16 at 02:00 Pantoprazole 40 mg 40 mg DAILY@06 IV Last administered on 07/13/16 06:03; Admin Dose 40 MG; Start 07/11/16 at 06:00 Piperacillin Sod/ Tazobactam Sod (Zosyn 3.375gm/ 100 ml (Pmx)) 100 ml @ 200 mls /hr Q6 IVPB Last administered on 07/13/16 17:23; Admin Dose 200 MLS/HR; Start 07/11/16 at 12:00 Ondansetron HCl (Zofran Inj) 4 mg Q6H PRN IV NAUSEA AND/OR VOMITING Last administered on 07/12/16 09:42; Admin Dose 4 MG; Start 07/11/16 at 07:00 Acetaminophen (Tylenol Tab) 650 mg Q6H PRN PO PAIN LEVEL 1-3 OR FEVER Last administered on 07/13/16 11:12; Admin Dose 650 MG; Start 07/11/16 at 07:00 Ibuprofen (Motrin) 600 mg Q6H PRN PO PAIN LEVEL 1-3 Last administered on 12:35; Admin Dose 600 MG; Start 07/13/16 at 02:00 Hydromorphone HCl (Dilaudid) 0.5 mg Q4H PRN IV PAIN LEVEL 8-10; Start 07/11/16 at 07:00 Acetaminophen/ Hydrocodone Bitart 1 tab 1 tab Q6H PRN PO PAIN LEVEL 4-7 Last administered on 07/12/16 08:41; Admin Dose 1 TAB; Start 07/11/16 at 07:00 Potassium Chloride/Dextrose/ Sod Cl (D5-NS + KCl 20 Meq) 1,000 ml @ 100 mls/hr Q10H IV Last administered on 07/13/16 08:11; Admin Dose 100 MLS/HR; Start at 06:33 Enoxaparin Sodium (Lovenox) 40 mg DAILY@07 SC Last administered on 07/13/16 06: 45; Admin Dose 40 MG; Start 07/11/16 at 07:00 MAURY ROE MD Jul 13, 2016 18:23
[2016-07-13 19:49] VITALS: BP 120/61; RESP 16
--- NOTE | 2016-07-13 22:04 | DS ---
DATE OF ADMISSION: 07/11/2016 DATE OF DISCHARGE: 07/13/2016 PRIMARY CARE PHYSICIAN: Unknown. BREAK OFF WORKER: Dr. Bing Medrano DIAGNOSIS ON ADMISSION: Appendicitis. DIAGNOSES ON DISCHARGE: 1. Appendicitis. 2. Anemia. HOSPITAL COURSE: A 25-year-old gentleman admitted with abdominal pain, CAT scan confirming appendic itis. The patient was seen by General Surgery and underwent a laparoscopic appendectomy. Postopera tive hospital course was uncomplicated. The patient tolerating diet, pain is controlled, and he is stable and fit for discharge. DISCHARGE PLAN: Home. FOLLOWUP: Dr. Medrano in 1 week. DIET: Regular. ACTIVITY: As tolerated. No heavy lifting. DURABLE MEDICAL EQUIPMENT: None. CODE STATUS: FULL. CONDITION: Stable. BARRIERS TO DISCHARGE: None. PENDING TESTS: None. FUNCTIONAL STATUS: The patient awake, alert, agrees to plan of care. REASON FOR ADMISSION: Abdominal pain. ALLERGIES: NO KNOWN DRUG ALLERGIES. LABORATORY DATA: CMP unremarkable. White cell count of 8, hemoglobin and hematocrit of 10 and 33, MCV a little low at 80, platelets of 220. INR 0.9. Blood and urine cultures unremarkable. IMAGING: CAT scan read as enlarged appendix and surrounding infiltrated fluid consistent with acute appendicitis, appendicolith, potential extraluminal gas. Chest x-ray: No acute process. Essentially, the appendix was necrotic and no noted perforation. DISCHARGE PLAN: Home. Follow up with General Surgery in 1 week, primary in 2 weeks. MEDICATIONS: 1. Percocet as needed. 2. Colace as directed. 3. Tylenol as needed. Dictated By: MAURY ROE MD AC/NTS Conf#: [id number] DID#: [id number] CC: BING MEDRANO MD;*EndCC*
[2016-07-14] MEDS: morphine 4 MG/ML VIAL IV PRN (01:50)
[2016-07-14] MEDS: D5-NS + KCL 20 MEQ 1,000 ML IV SCH (04:33)
[2016-07-14] MEDS: PANTOPRAZOLE 40 MG INJ IV SCH (06:23)
[2016-07-14] MEDS: ENOXAPARIN 40 MG/0.4 ML SYG SC SCH (06:26)
[2016-07-14] MEDS: HYDROCODONE/APAP (5/325) TAB PO PRN (06:27)
[2016-07-14 07:22] VITALS: BP 128/72; RESP 19
--- NOTE | 2016-07-14 07:38 | PN ---
DATE: 07/13/2016 SUBJECTIVE: Mr. Tran is now postop day 2 from perforated appendicitis. The patient is feeling b cruz, he is passing flatus. VITAL SIGNS: T-current is 98.3, but his T-max is 102.5 yesterday at 6:00. ABDOMEN: Soft, nondistended. His wounds are clean, dry and intact. LABORATORY DATA: Reveal a white count of 9, hematocrit of 33 and platelets of 220. ASSESSMENT AND PLAN: Mr. Tran is postop day 2 from perforated appendicitis. 1. Advance to soft diet. 2. Continue antibiotics. 3. Probable discharge tomorrow on oral antibiotics if he remains afebrile over the course of the da y. Dictated By: BING MEADOWS/GOVIND Conf#: [id number] DID#: [id number]
[2016-07-14 07:57] VITALS: BP 110/53; RESP 18
== END 2016-07-14 12:20 | disposition home or self-care (01) | DRG 853 ==
LOC: E/R 20:35 → SDS 07-11 06:00 → MS1 07-11 10:37
PROVIDERS: ADMIT Family Medicine; ATTEND Family Medicine
PROC: 0DTJ4ZZ Resection of Appendix, Percutaneous Endoscopic Approach (ICD-10-PCS; principal; 2016-07-11 06:30)
DX: A41.9 Sepsis, unspecified organism (principal); K35.2 Acute appendicitis with generalized peritonitis; D64.9 Anemia, unspecified
CPT/HCPCS: 36415; 71010; 74176; 80048; 80053; 81001; 83605; 84484; 85025; 85610; 85730; 87040; 87086; 88304; 93005; 96365; 96372; 96375; 96376; C9113; J1650; J1885; J2175; J2270; J2405; J2543; J2710; J3010; J3370; J3480; J7030; J7999

== ENCOUNTER 2017-02-10 09:47 | Emergency (ER) | END 2017-02-10 10:50 | disposition home or self-care (01) ==

== ENCOUNTER 2017-09-14 12:21 | Emergency (ER) | END 2017-09-14 13:55 | disposition home or self-care (01) ==